=== PATIENT | male | born 1955 | race Two or more races ===

== ENCOUNTER 2022-05-13 09:18 | Outpatient (CLI) | payer OTHER ==
[~2022-05-13 09:18] MED LIST: ASACOL HD800 MG PO; AVAPRO150 MG PO; CRESTOR20 MG PO; HYDRODIURIL12.5 MG PO; PROTONIX40 MG PO
== END 2022-05-13 09:20 | disposition home or self-care (01) ==
LOC: NUCLEAR 09:18
PROVIDERS: ATTEND Internal Medicine Hematology & Oncology
DX: K82.9 Disease of gallbladder, unspecified (principal); D51.3 Other dietary vitamin B12 deficiency anemia; D50.0 Iron deficiency anemia secondary to blood loss (chronic); K51.911 Ulcerative colitis, unspecified with rectal bleeding; I10 Essential (primary) hypertension; E78.2 Mixed hyperlipidemia
CPT/HCPCS: 78227; A9537; J2805

== ENCOUNTER 2022-05-13 09:23 | Outpatient (CLI) | payer OTHER | END 2022-05-13 09:24 | disposition home or self-care (01) | LOC: LAB 09:23 | PROVIDERS: ATTEND Internal Medicine Hematology & Oncology | DX: D50.8 Other iron deficiency anemias (principal); R79.9 Abnormal finding of blood chemistry, unspecified; I10 Essential (primary) hypertension; R74.02 Elevation of levels of lactic acid dehydrogenase [LDH]; K76.89 Other specified diseases of liver; C25.9 Malignant neoplasm of pancreas, unspecified; R97.8 Other abnormal tumor markers; R77.2 Abnormality of alphafetoprotein; D51.3 Other dietary vitamin B12 deficiency anemia; D50.0 Iron deficiency anemia secondary to blood loss (chronic); K51.911 Ulcerative colitis, unspecified with rectal bleeding; E78.2 Mixed hyperlipidemia ==

== ENCOUNTER 2023-06-03 13:13 | Emergency (ER) | payer OTHER ==
[~2023-06-03] VITALS: Ht 175.3 cm; Wt 116.1 kg
[2023-06-03] MEDS ORDERED: NORVASC5 MG PO (13:57)
[2023-06-03 14:49] LABS: PH,URINE 5.5 (5.0-8.0); URINE APPEARANCE Clear; URINE BILIRRUBIN Negative (NEGATIVE); URINE BLOOD Negative; URINE COLOR Yellow; URINE GLUCOSE Negative (NEGATIVE); URINE LEUKOCYTE Negative; URINE NITRATE Negative; URINE PROTEIN Negative (NEGATIVE); URINE UROBILINOGEN 0.2 E.U./dl
[2023-06-03 14:53] LABS: URINE EPITHELIAL CELLS 3.9 uL (0.0-38.8); URINE RBC 13.2 uL (0.0-20.8); URINE WBC 2.3 uL (0.0-23.2)
[2023-06-03 14:56] LABS: URINE BACTERIA 3.7 uL (0.0-1933)
[2023-06-03 15:02] LABS: HEMATOCRIT 39.3 % (39.0-48.0); HEMOGLOBIN 13.2 g/dL (13-16.00); MEAN CELL VOLUME 85.2 fL (80.0-100.00); MEAN CORPUSCULAR HEMOGLOBIN 28.6 pg (27.00-32.0); MEAN CORPUSCULAR HGB CONC 33.5 g/dl (32.0-36.0); PLATELET COUNT 310 K/uL (150-450); RED BLOOD COUNT 4.61 M/uL (4.00-6.00); RED CELL DISTRIBUTION WIDTH 14.4 % (11.5-14.5)
[2023-06-03 15:16] LABS: CALCIUM 9.6 mg/dL (8.5-10.1); CREATININE SERUM 0.88 mg/dL (0.70-1.30); GFR 85.86; POTASSIUM 4.24 mEq/L (3.5-5.1)
[2023-06-03] MEDS ORDERED: FAMOTIDINE/PF 20 MG in 0.9 % SODIUM CHLORIDE 8 ML IV PUSH STA (16:05)
[2023-06-03] MEDS ORDERED: HYOSCYAMINE SULFATE 0.125 MG TAB.SUBL SL ONE (16:15)
[2023-06-03] MEDS ORDERED: METRONIDAZOLE/SODIUM CHLORIDE 500 MG/100 ML PIGGYBACK IV ONE (16:15)
[2023-06-03] MEDS ORDERED: 0.9 % SODIUM CHLORIDE 1,000 ML IV SCH (16:15)
[2023-06-03] MEDS ORDERED: PROTONIX40 MG PO (20:01)
[2023-06-03] MEDS ORDERED: INTESTINEX680 M1 PO (20:01)
[2023-06-03] MEDS ORDERED: CIPRO500 MG PO (20:01)
[2023-06-03] MEDS ORDERED: METRONIDAZOLE500 MG PO (20:01)
[2023-06-03] MEDS ORDERED: LEVSIN/SL0.125 MG SL (20:01)
== END 2023-06-03 20:13 | disposition home or self-care (01) ==
LOC: ER 13:13
PROVIDERS: Emergency Medicine
DX: K57.92 Diverticulitis of intestine, part unspecified, without perforation or abscess without bleeding (principal); R10.9 Unspecified abdominal pain; I10 Essential (primary) hypertension; Z88.6 Allergy status to analgesic agent
CPT/HCPCS: 36415; 74177; 96365; 96366; 99284; J3490 ×2; J7030; Q9965